=== PATIENT | male | born 1965 | race Caucasian/White ===

== ENCOUNTER → 2017-02-17 | Outpatient (CLI) | payer BC ==
--- NOTE | 2017-02-17 15:44 | RAD ---
Bilateral knees, 6 views, 02/17/2017: History: Knee pain No fracture or dislocation is identified. No significant arthritic change is seen. There is no evidence of a significant joint effusion on either side. IMPRESSION: No significant abnormality is detected.
== END | disposition home or self-care (01) ==
LOC: DXRADRC 11:25
PROVIDERS: ATTEND Family Medicine
DX: M25.561 Pain in right knee (principal); M25.562 Pain in left knee
CPT/HCPCS: 73562

== ENCOUNTER → 2019-10-11 | Outpatient (CLI) | payer BC ==
--- NOTE | 2019-10-11 13:33 | RAD ---
CERVICAL SPINE 2-3V DATE: 10/11/2019 12:00 AM INDICATION: Reason: NECK PAIN / Spl. Instructions: / History: COMPARISON: None. FINDINGS: The cervical spine is visualized to the level of C6-7 on the lateral views. Bones/Alignment: No evidence of acute fracture. There is no listhesis. Normal alignment of the lateral masses of C1 on C2. Joints: Mild multilevel degenerative disc disease The facets are normally aligned. Soft tissue: No significant prevertebral soft tissue swelling. Cochlear implants. IMPRESSION: Mild cervical spondylosis Electronically signed by: Dev Steven MD (10/11/2019 1:30 PM) [facility]
== END | disposition home or self-care (01) ==
LOC: PMG 12:26
PROVIDERS: ATTEND Family Medicine
DX: M47.812 Spondylosis without myelopathy or radiculopathy, cervical region (principal); M50.30 Other cervical disc degeneration, unspecified cervical region
CPT/HCPCS: 72040

== ENCOUNTER → 2020-11-27 | Outpatient (CLI) | payer BC ==
--- NOTE | 2020-11-30 14:54 | RAD ---
EXAM: Bilateral shoulder 3 views. HISTORY: Bilateral shoulder pain. COMPARISON: None. FINDINGS: On the right, the glenohumeral joint space is mostly effaced posteriorly. There is some acq uired glenoid retroversion. Acromioclavicular osteoarthritis is mild for patient age. On the left, the glenohumeral joint space is completely effaced with subchondral cyst formation in th e humeral head and glenoid. There is acquired glenoid retroversion. Acromioclavicular osteoarthritis appears mild for patient age. A calcification in the region of the rotator cuff insertion is consiste nt with calcific tendinitis. No fractures are identified bilaterally. IMPRESSION: 1. Glenohumeral osteoarthritis is severe on the left and moderate to severe on the right. 2. Bilateral acquired glenoid retroversion. 3. Findings consistent with calcific tendinitis of the left rotator cuff insertion. Electronically signed by: Shayne Patrick MD (11/30/2020 2:51 PM) [facility]
== END ==
LOC: RAD 10:46
PROVIDERS: ATTEND Physician Assistant
DX: M19.012 Primary osteoarthritis, left shoulder (principal); M19.011 Primary osteoarthritis, right shoulder; M25.812 Other specified joint disorders, left shoulder
CPT/HCPCS: 73030